=== PATIENT | female | born 1970 | race Caucasian/White ===

== ENCOUNTER 2017-03-08 11:13 | Emergency (ER) | payer SELFPAY ==
[2017-03-08] MEDS ORDERED: Sodium Chloride 0.9% 10 ML Syringe FLUSH PRN (11:22)
[2017-03-08] MEDS ORDERED: Ondansetron 4 MG/2 ML SDV IVPUSH ONE (11:23)
[2017-03-08] MEDS ORDERED: HYDROmorphone 1 MG/ML Syringe IVPUSH ONE (11:23)
[2017-03-08] MEDS ORDERED: Sodium Chloride 0.9% 1,000 ML IV ONE (11:24)
[2017-03-08] MEDS ORDERED: Ketorolac 30 MG/ML SDV IVPUSH ONE (11:24)
[2017-03-08 11:57] LABS: CHLORIDE,CL 106 mmol/L (98-107); SODIUM,NA 141 mmol/L (136-145)
[2017-03-08] MEDS ORDERED: Iopamidol 612 MG/ML 100 ML Bottle IVPUSH ONE (12:09)
[2017-03-08] MEDS ORDERED: Sodium Chloride 0.9% 100 ML IV ONE (12:09)
[2017-03-08 14:55] VITALS: BP 118/62
--- NOTE | 2017-03-09 09:56 | ER ---
Date of Service: 03/08/2017 SUBJECTIVE: Rosa presents to the emergency room with complaints of right upper quadrant abdominal pain that she woke with this morning. The patient initially went to the clinic for treatment and was subsequently sent here due to the severity of the patient's symptoms. The patient states that she has been experiencing intermittent right upper quadrant abdominal pain for over a year. She states that she has not consulted with her primary care provider Shahid Gandara, for this problem. She states that the occasionally she wakes with the symptoms in the middle of the night and occasionally she develops the symptoms after eating a fatty meal. She denies any chey-colored stools or tea-colored urine. She states that she has not been experiencing any fever or chills. Denies any jaundice or scleral icterus. She states that the discomfort again is located in her right upper quadrant of her abdomen and does not radiate. PAST MEDICAL HISTORY: Tobacco abuse disorder. MEDICATIONS: Doxycycline for Lyme disease prophylaxis. ALLERGIES: NKDA. REVIEW OF SYSTEMS: General: No fever or chills. HEENT: No sore throat, rhinorrhea, or congestion. Respiratory: No shortness of breath. Cardiac: Denies any substernal chest pain. No jaw, arm, neck, or back pain. GI: No vomiting or diarrhea. She is nauseated particularly with the pain. : Denies any dysuria. Musculoskeletal: No myalgias or arthralgias. Neurologic: No fainting, blackouts, or lightheadedness. PHYSICAL EXAMINATION: General: This is a 47-year-old female patient, in no acute distress. Vital Signs: Blood pressure is 136/75, heart rate 65, temp is 36.0, respiratory rate 16, O2 saturations 100%. Skin: Warm, pink, and dry. HEENT: Head is normocephalic, atraumatic. Eyes, PERRLA. Extraocular movements are intact. There is no scleral icterus. Mouth, oral mucosa is moist. Lungs: Clear to auscultation. Heart: Regular rate and rhythm. Abdomen: Soft, tender in the right upper quadrant. There are no masses noted. There is no hepatosplenomegaly noted. Extremities: Without edema. Neurologic: She is alert, oriented, answering all questions appropriately. Her speech is fluent. Her gait is within normal limits. LABORATORY DATA: WBC is 16.5, hemoglobin is 15.1, platelets are 370. Coags, PT is 9.9, INR is 0.9. Chemistry; sodium is 141, potassium is 4.0, chloride is 106, bicarb 23, BUN is 6, creatinine is 0.8. GFR is greater than 60. Glucose is 90, calcium is 9.1, corrected calcium is 9.34, total bilirubin is 0.5, AST is 10, ALT is 17, alkaline phosphatase is 68. C-reactive protein is 0.5, total protein is 7.4, albumin is 3.7, amylase is 57 and her lipase is 165. CT scan of the patient's chest, abdomen, and pelvis were obtained. She did have evidence of cholelithiasis without evidence of cholecystitis. She also did have evidence of emphysematous changes of her lungs consistent with her tobacco abuse. She also was noted to have bilateral lung nodules with suggestion by [facility] to have a repeat chest CT in 3 to 6 months and also at 18 to 24 months. Also, she was noted to have evidence of diffuse breast nodules and they suggested subsequent mammogram. The patient states that she has not had any mammogram as of yet. EMERGENCY ROOM COURSE: IV access is established. She is given a liter of normal saline. She was given Zofran 4 mg IV and Dilaudid 1 mg IV. She was also given Toradol 30 mg IV. She states that her pain was down to zero at the time of discharge. ASSESSMENT: Right upper quadrant abdominal pain. PLAN: The patient will be discharged. [place] 10/325 with instructions to take 1 every 4 to 6 hours as needed for pain. I did contact Dragan Mcarthur and discussed the case with him. All of her information was faxed to [facility] and he will arrange follow up. Advised to decreased intake of fatty foods. She was given a handout on Cholelithiasis and cholecystitis. All questions were answered. MWK: 03/08/2017 14:50:15 MODL: 03/08/2017 22:52:53 /[id number]
== END 2017-03-08 14:35 | disposition home or self-care (01) ==
LOC: MERGE 11:13 → EDBD 11:13 → VM.ED 11:13
DX: R10.11 Right upper quadrant pain (principal); Z87.891 Personal history of nicotine dependence
CPT/HCPCS: 36415; 71260; 74177; 80053; 82150; 83690; 85025; 85610; 86140; 96361; 96374; 96375; 99284; J1170; J1885; J2405; J7030

== ENCOUNTER 2023-02-10 16:37 | Emergency (ER) | payer MEDICAID ==
[2023-02-10 16:48] VITALS: BP 141/76; PULSE 87
== END 2023-02-10 17:02 | disposition home or self-care (01) ==
LOC: VM.ED 16:37
DX: L08.9 Local infection of the skin and subcutaneous tissue, unspecified (principal); F17.200 Nicotine dependence, unspecified, uncomplicated
CPT/HCPCS: 99283